=== PATIENT | female | born 1990 | race Caucasian/White ===

== ENCOUNTER 2017-06-30 23:24 | Emergency (ER) | payer OTHER ==
[2017-06-30] MEDS ORDERED: NS 1,000 ML IV ONE ×2 (23:30→23:34)
[2017-06-30] MEDS ORDERED: ONDANSETRON 4 MG/2 ML VIAL IVP ONE (23:30)
--- NOTE | 2017-06-30 23:34 | EDPHY ---
H & P Stated Complaint: vomiting for 4hours Time Seen by Provider: 06/30/17 23:29 HPI/ROS: HPI CHIEF COMPLAINT: Nausea vomiting HISTORY OF PRESENT ILLNESS: Patient 26-year-old female she has a history of cyclic vomiting syndrome, celiac disease, endometriosis, she presents emergency room with nausea vomiting for the past 5+ hours. Patient reports to me that she has had multiple episodes of vomiting. Nonbilious nonbloody. States she thinks started around 530. Consistent with previous cyclic vomiting syndrome. She does smoke marijuana regularly. Upon arrival to the emergency room she is actively vomiting and dry heaving and retching in ER room for when I evaluated her. Past Medical History: Cyclic vomiting syndrome, celiac disease, endometriosis Past Surgical History: Denies recent surgery Social History: Daily marijuana use. Denies alcohol or other drugs. Family History: Noncontributory ROS REVIEW OF SYSTEMS: A comprehensive 10 point review of systems is otherwise negative aside from elements mentioned in the history of present illness. Exam Constitutional actively vomiting triage nursing summary reviewed, vital signs reviewed, awake/alert. Eyes normal conjunctivae and sclera, EOMI, PERRLA. HENT normal inspection, atraumatic, moist mucus membranes, no epistaxis, neck supple/ no meningismus, no raccoon eyes. Respiratory clear to auscultation bilaterally, normal breath sounds, no respiratory distress, no wheezing. Cardiovascular rate normal, regular rhythm, no murmur, no edema, distal pulses normal. Gastrointestinal soft, non-tender, no rebound, no guarding, normal bowel sounds, no distension, no pulsatile mass. Genitourinary no CVA tenderness. Musculoskeletal no midline vertebral tenderness, full range of motion, no calf swelling, no tenderness of extremities, no meningismus, good pulses, neurovascularly intact. Skin pink, warm, & dry, no rash, skin atraumatic. Neurologic awake, alert and oriented x 3, AAOx3, moves all 4 extremities equally, motor intact, sensory intact, CN II-XII intact, normal cerebellar, normal vision, normal speech. Psychiatric normal mood/affect. Heme/Lymph/Immune no lymphadenopathy. Differential Diagnosis: Includes but is not limited to in a particular order dehydration, electrolyte disturbance, cyclic vomiting syndrome, gastritis, esophagitis, hyper emesis due to marijuana Medical Decision Making: Plan for this patient IV establishment, IV fluid bolus , IV Haldol 5 mg for nausea vomiting, IV fluids, IV Benadryl to counter active side effect of Haldol, and re-evaluate. Re-evaluation: 1212: Patient is actively retching in the emergency room. She received 5 mg IV Haldol for nausea vomiting, IV fluids and IV Benadryl 25 mg. This did slightly improve her. Additionally she received 25 mg IV Phenergan. This time she is resting. 0131: Re-examination at this time this patient is requesting discharge. Her abdomen is soft. She did improved greatly with IV fluids, IV Benadryl IV Haldol IV Phenergan. Her mom is at bedside she has radiologist she would like to take her home. The patient is requesting discharge. She has not had any further vomiting. Source: Patient - Personal History LMP (Females 10-55): Over 28 Days Ago Current Tetanus/Diphtheria Vaccine: Yes Current Tetanus Diphtheria and Acellular Pertussis (TDAP): Yes - Medical/Surgical History Hx Asthma: Yes Hx Chronic Respiratory Disease: No Hx Diabetes: No Hx Cardiac Disease: No Hx Renal Disease: No Hx Cirrhosis: No Hx Alcoholism: No Hx HIV/AIDS: No Hx Splenectomy or Spleen Trauma: No Other PMH: being eval'd possible celiac's, cyclic vomiting syndrome, endometriosis, SLE - Social History Smoking Status: Never smoked Constitutional: Initial Vital Signs Temperature (C) 36.7 C 06/30/17 23:25 Heart Rate 87 06/30/17 23:25 Respiratory Rate 18 06/30/17 23:25 Blood Pressure 116/82 H 06/30/17 23:25 O2 Sat (%) 99 06/30/17 23:25 O2 Delivery Mode Room Air Allergies/Adverse Reactions: No Known Allergies Allergy (Verified 06/30/17 23:28) Home Medications: Medication Instructions Recorded Implanon 05/07/14 Promethazine HCl 25 mg PO Q6-8PRN PRN #10 tablet 07/01/17 Ranitidine HCl [Zantac] 150 mg PO DAILY #30 tablet 07/01/17 Medical Decision Making - Data Points Laboratory Results: Laboratory Results 06/30/17 23:48 06/30/17 23:48 07/01/17 06/30/17 06/30/17 01:20 23:48 23:48 WBC RBC Hgb Hct MCV MCH MCHC RDW Plt Count MPV Neut % (Auto) Lymph % (Auto) [place] % (Auto) Eos % (Auto) Baso % (Auto) Nucleat RBC Rel Count Absolute Neuts (auto) Absolute Lymphs (auto) Absolute Monos (auto) Absolute Eos (auto) Absolute Basos (auto) Absolute Nucleated RBC Immature Gran % Immature Gran # Sodium 143 mEq/L mEq/L (135-145) Potassium 3.7 mEq/L mEq/L (3.5-5.2) Chloride 104 mEq/L mEq/L (97-110) Carbon Dioxide 21 mEq/l L mEq/l (22-31) Anion Gap 18 mEq/L H mEq/L (8-16) BUN 15 mg/dL mg/dL (7-23) Creatinine 0.7 mg/dL mg/dL (0.6-1.0) Estimated GFR > 60 Glucose 176 mg/dL H mg/dL (70-100) Calcium 9.9 mg/dL mg/dL (8.5-10.4) Total Bilirubin 0.8 mg/dL mg/dL (0.1-1.4) Conjugated Bilirubin 0.4 mg/dL mg/dL (0.0-0.5) Unconjugated Bilirubin 0.4 mg/dL mg/dL (0.0-1.1) AST 19 IU/L IU/L (14-46) ALT 33 IU/L IU/L (9-52) Alkaline Phosphatase 79 IU/L IU/L (38-126) Total Protein 7.0 g/dL g/dL (6.3-8.2) Albumin 4.5 g/dL g/dL (3.5-5.0) Lipase 184 IU/L IU/L (23-300) Beta HCG, Qual NEGATIVE Urine Color PALE YELLOW Urine Appearance CLEAR Urine pH 7.0 (5.0-7.5) Ur Specific [place] 1.010 (1.002-1.030) Urine Protein NEGATIVE (NEGATIVE) Urine Ketones 1+ H (NEGATIVE) Urine Blood NEGATIVE (NEGATIVE) Urine Nitrate NEGATIVE (NEGATIVE) Urine Bilirubin NEGATIVE (NEGATIVE) Urine Urobilinogen NEGATIVE EU EU (0.2-1.0) Ur Leukocyte Esterase NEGATIVE (NEGATIVE) Urine RBC Pending Urine WBC Pending Ur Epithelial Cells Pending Urine Glucose 1+ H (NEGATIVE) 06/30/17 23:48 WBC 16.31 10^3/uL H 10^3/uL (3.80-9.50) RBC 4.56 10^6/uL 10^6/uL (4.18-5.33) Hgb 14.3 g/dL g/dL (12.6-16.3) Hct 41.4 % % (38.0-47.0) MCV 90.8 fL fL (81.5-99.8) MCH 31.4 pg pg (27.9-34.1) MCHC 34.5 g/dL g/dL (32.4-36.7) RDW 12.0 % % (11.5-15.2) Plt Count 344 10^3/uL 10^3/uL (150-400) MPV 9.3 fL fL (8.7-11.7) Neut % (Auto) 80.1 % H % (39.3-74.2) Lymph % (Auto) 13.9 % L % (15.0-45.0) [place] % (Auto) 4.2 % L % (4.5-13.0) Eos % (Auto) 0.8 % % (0.6-7.6) Baso % (Auto) 0.4 % % (0.3-1.7) Nucleat RBC Rel Count 0.0 % % (0.0-0.2) Absolute Neuts (auto) 13.09 10^3/uL H 10^3/uL (1.70-6.50) Absolute Lymphs (auto) 2.26 10^3/uL 10^3/uL (1.00-3.00) Absolute Monos (auto) 0.68 10^3/uL 10^3/uL (0.30-0.80) Absolute Eos (auto) 0.13 10^3/uL 10^3/uL (0.03-0.40) Absolute Basos (auto) 0.06 10^3/uL 10^3/uL (0.02-0.10) Absolute Nucleated RBC 0.00 10^3/uL 10^3/uL (0-0.01) Immature Gran % 0.6 % % (0.0-1.1) Immature Gran # 0.09 10^3/uL 10^3/uL (0.00-0.10) Sodium Potassium Chloride Carbon Dioxide Anion Gap BUN Creatinine Estimated GFR Glucose Calcium Total Bilirubin Conjugated Bilirubin Unconjugated Bilirubin AST ALT Alkaline Phosphatase Total Protein Albumin Lipase Beta HCG, Qual Urine Color Urine Appearance Urine pH Ur Specific [place] Urine Protein Urine Ketones Urine Blood Urine Nitrate Urine Bilirubin Urine Urobilinogen Ur Leukocyte Esterase Urine RBC Urine WBC Ur Epithelial Cells Urine Glucose Medications Given: Discontinued Medications Diphenhydramine HCl (Benadryl Injection) 25 mg IVP EDNOW ONE Stop: 06/30/17 23:37 Last Admin: 06/30/17 23:42 Dose: 25 mg Haloperidol Lactate (Haldol Injection) 5 mg IVP EDNOW ONE Stop: 06/30/17 23:37 Last Admin: 06/30/17 23:42 Dose: 5 mg Sodium Chloride (Ns) 1,000 mls @ 0 mls/hr IV EDNOW ONE; Wide Open PRN Reason: Protocol Stop: 06/30/17 23:31 Last Admin: 06/30/17 23:42 Dose: 1,000 mls Sodium Chloride (Ns) 1,000 mls @ 0 mls/hr IV ONCE ONE PRN Reason: Wide Open Stop: 06/30/17 23:35 Last Admin: 06/30/17 23:58 Dose: 1,000 mls Sodium Chloride (Ns) 1,000 mls @ 0 mls/hr IV ONCE ONE PRN Reason: Wide Open Stop: 07/01/17 00:36 Last Admin: 07/01/17 01:07 Dose: Not Given Ondansetron HCl (Zofran) 4 mg IVP EDNOW ONE Stop: 06/30/17 23:31 Last Admin: 07/01/17 01:07 Dose: Not Given Promethazine HCl (Phenergan) 12.5 mg IVP ONCE ONE Stop: 06/30/17 23:53 Last Admin: 07/01/17 00:01 Dose: 12.5 mg Departure - Departure Disposition: Home, Routine, Self-Care Clinical Impression: Nausea & vomiting Qualifiers: Vomiting type: unspecified Vomiting Intractability: intractable Qualified Code( s): R11.2 - Nausea with vomiting, unspecified Condition: Good Instructions: Promethazine (By mouth), Acute Nausea and Vomiting (ED) Additional Instructions: 1. [place] diet over the next 24-48 hours. 2. Antacid as prescribed. 3. Phenergan as prescribed. for nausea vomiting Referrals: Gertrudis Padron MD [Primary Care Provider] - As per Instructions Prescriptions: Promethazine HCl 25 mg PO Q6-8PRN PRN #10 tablet PRN Reason: Nausea/Vomiting, Use 1st Ranitidine HCl [Zantac] 150 mg PO DAILY #30 tablet
[2017-06-30] MEDS ORDERED: HALOPERIDOL LACT 5 MG/ML INJ ONE (23:36)
[2017-06-30] MEDS ORDERED: HALOPERIDOL LACT 5 MG/ML INJ IVP ONE (23:36)
[2017-06-30] MEDS ORDERED: PROMETHAZINE HCL 25 MG/ML INJ ONE (23:50)
[2017-06-30] MEDS ORDERED: PROMETHAZINE HCL 25 MG/ML INJ IVP ONE (23:52)
[2017-06-30 23:55] LABS: PLATELET COUNT 344 10^3/uL (150-400)
[2017-07-01] MEDS ORDERED: NS 1,000 ML IV ONE (00:35)
[2017-07-01 01:08] VITALS: PULSE 74; RESP 16; O2SAT 96
[2017-07-01] MEDS ORDERED: PROMETHAZINE 25 MG PREPACK #4 BTL TAKEHOME ONE (01:27)
[2017-07-01 01:38] VITALS: BP 118/67; TEMP 98.6
== END 2017-07-01 01:38 | disposition home or self-care (01) ==
DX: R11.2 Nausea with vomiting, unspecified (principal); E86.9 Volume depletion, unspecified; J45.909 Unspecified asthma, uncomplicated
CPT/HCPCS: 96374; J1200; J1630; J2550